=== PATIENT | male | born 1945 ===

== ENCOUNTER 2017-09-11 10:15 | Inpatient (IN) | payer OTHER ==
[~2017-09-11] VITALS: Ht 165.1 cm; Wt 77.2 kg
[2017-09-21] MEDS ORDERED: LASIX40 MG PO (13:43)
[2017-09-21] MEDS ORDERED: ZESTRIL20 MG PO (13:43)
[2017-09-21] MEDS ORDERED: CARDURA8 MG PO (13:44)
[2017-09-21] MEDS ORDERED: LIPITOR20 MG PO (13:44)
[2017-09-21] MEDS ORDERED: SINGULAIR 10MG10 MG PO (13:45)
[2017-09-21] MEDS ORDERED: GABAPENTIN800 MG PO (14:00)
[2017-09-21] MEDS ORDERED: DOCUSATE SODIU100 MG PO (14:01)
[2017-09-21] MEDS ORDERED: CLONAZEPAM1 MG PO (14:02)
[2017-09-21] MEDS ORDERED: PERCOCET 5-3251 EACH PO (14:02)
[2017-09-21] MEDS ORDERED: CIPROFLOXACIN750 MG PO (14:03)
== END 2017-09-21 17:15 | disposition home or self-care (01) | DRG 460 ==
LOC: PED 09-20 04:50 → O/R 09-20 04:50 → SURH 09-20 10:15 → PED 09-20 15:52
PROVIDERS: Orthopaedic Surgery Orthopaedic Surgery of the Spine
PROC: 0SG30AJ Fusion of Lumbosacral Joint with Interbody Fusion Device, Posterior Approach, Anterior Column, Open Approach (ICD-10-PCS; 2017-09-20)
PROC: 0ST40ZZ Resection of Lumbosacral Disc, Open Approach (ICD-10-PCS; 2017-09-20)
PROC: 00NY0ZZ Release Lumbar Spinal Cord, Open Approach (ICD-10-PCS; 2017-09-20)
PROC: 07DS3ZZ Extraction of Vertebral Bone Marrow, Percutaneous Approach (ICD-10-PCS; 2017-09-20)
PROC: 00NY0ZZ Release Lumbar Spinal Cord, Open Approach (ICD-10-PCS; principal; 2017-09-20 15:15)
DX: M43.17 Spondylolisthesis, lumbosacral region (principal); M47.16 Other spondylosis with myelopathy, lumbar region; M48.061 Spinal stenosis, lumbar region without neurogenic claudication; M51.17 Intervertebral disc disorders with radiculopathy, lumbosacral region; I11.0 Hypertensive heart disease with heart failure; I50.9 Heart failure, unspecified; Z95.1 Presence of aortocoronary bypass graft